=== PATIENT | male | born 1990 | race Caucasian/White ===

== ENCOUNTER 2024-04-23 19:45 | Emergency (ER) | payer SELFPAY ==
[2024-04-23 19:51] VITALS: BP 152/84; PULSE 98; RESP 18; TEMP 36.6; O2SAT 96; BMI 41.2
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
[2024-04-23] MEDS: tetanus-dipt-pertussis 0.5 mL SDV IM (22:36)
[2024-04-23] MEDS: acetaminophen 500 mg Tablet 1000 MG PO (22:54)
[2024-04-23 22:55] VITALS: BP 148/82; PULSE 96; RESP 16; TEMP 36.6; O2SAT 97
[2024-04-23] MEDS: cephALEXin 500 mg Capsule PO (22:55)
== END 2024-04-23 22:58 | disposition home or self-care (01) ==
PROVIDERS: Emergency Provider Physician Assistant
DX: S30.810A Abrasion of lower back and pelvis, initial encounter (principal); S40.812A Abrasion of left upper arm, initial encounter; S91.002A Unspecified open wound, left ankle, initial encounter; V22.49XA Other motorcycle driver injured in collision with two- or three-wheeled motor vehicle in traffic accident, initial encounter; Z23 Encounter for immunization
CPT/HCPCS: 73600; 73610; 73630; 90715; 99283; E0114

== ENCOUNTER 2024-12-17 12:07 | Emergency (ER) | payer SELFPAY ==
[2024-12-17 12:45] VITALS: BP 144/84; PULSE 71; RESP 18; TEMP 36.7; O2SAT 97; BMI 37.5
--- NOTE | 2024-12-17 13:42 | ED_ITS ---
HPI - Dental/Oral General: Chief complaint: Dental/Oral Stated complaint: R Face swollen Time Seen by Provider: 12/17/24 13:19 Source: patient Mode of arrival: ambulatory Limitations: no limitations History of Present Illness: 34-year-old male states he has had cyst to his right lower face has been going on for roughly 7 to 8 months states that it is grown and became more painful he is had no drainage but denies any fever. Associated symptoms: Denies fever(s) Related Data Home Medications Medication Instructions Recorded Confirmed naproxen sodium 220 mg capsule 220 mg PO BID PRN Pain 12/17/24 12/17/24 (Aleve) Previous Rx's Medication Instructions Recorded sulfamethoxazole 800 1 tab PO BID 10 days #20 tabs 12/17/24 mg-trimethoprim 160 mg tablet (Bactrim DS) Allergies Allergy/AdvReac Type Severity Reaction Status Date / Time No Known Allergies Allergy Verified 12/17/24 12:49 Review of Systems Const: Denies: fever(s), chills, body aches or change in appetite ENMT: Denies: throat pain or dental pain Card: Denies: chest pain Resp: Denies: dyspnea GI: Denies: abdominal pain, nausea, vomiting or diarrhea Musc: Denies: neck pain or back pain Skin/Breast: Denies: rash Neuro: Denies: headache(s) Physical Exam Const: COMMON NORMALS: no acute distress, patient oriented x3 and healthy appearing HENMT: COMMON NORMALS: normocephalic and atraumatic HEAD & SCALP: normocephalic and atraumatic OTHER: Sebaceous cyst noted to right lower face no drainage at this time Eye: COMMON NORMALS: Equal, round and reactive pupils present and EOMs intact bilaterally PUPIL: Yes Equal, round and reactive pupils present Neck/C-Spine: COMMON NORMALS: full ROM and supple Chest: COMMONS NORMALS: normal inspection of the chest Resp: COMMON NORMALS: normal respiratory effort Cardio: COMMON NORMALS: regular rate, regular rhythm and No murmurs present (Cardio) RATE: regular rate RHYTHM: regular rhythm Extremity: COMMON NORMALS: normal to inspection and full ROM Neuro: COMMON NORMALS: patient oriented x3, moves all extremities and no focal motor deficits Psych: COMMON NORMALS: mental status grossly normal, Normal thought process present and cooperative THOUGHT PROCESS: Normal thought process present Skin: COMMON NORMALS: no rashes or lesions noted and no wounds GENERAL SKIN EXAM: no rashes or lesions noted Procedures Abscess I/D Site: face Side (if applicable): right Local Anesthetic: lidocaine 1% Amount of anesthesia used (mL): 6 Technique: incised with #11 blade Irrigation: No Packing used?: none Course Vital Signs: Vital signs: Vital Signs Temperature 98.0 F 12/17/24 12:45 Pulse Rate 71 12/17/24 12:45 Respiratory Rate 18 12/17/24 12:45 Blood Pressure 144/84 12/17/24 12:45 Pulse Oximetry 97 12/17/24 12:45 Oxygen Delivery Me thod Room Air 12/17/24 12:45 MDM - Dental/Oral Medical Decision Making Patient presents with a sebaceous cyst to right lower face was able to incise and drain the cyst will start him on Bactrim is to follow-up with dermatology or return if it worsens he understands agrees to plan. No radiology studies performed this visit Discharge Plan Discharge Patient Disposition: Home Clinical Impression: Sebaceous cyst Condition: Stable Prescriptions: New sulfamethoxazole-trimethoprim [Bactrim DS] 800-160 mg tablet 1 tab PO BID 10 Days Qty: 20 0RF No Action naproxen sodium [Aleve] 220 mg Capsule 220 mg PO BID PRN (Reason: Pain) Discharge Orders: Discharge ED (Routine); Ordered 12/17/24 Ordered By: Meliza Kent Referrals: Olga Segundo DO [Physician] - 4-7 days Discharge Diet: Advance as tolerated Discharge Activity: Resume usual activity Patient Instructions: Epidermal Inclusion Cysts (ED) Coding Level of Care Code ED Acute Care Physician for [employer]
== END 2024-12-17 14:19 | disposition home or self-care (01) ==
PROVIDERS: Emergency Provider Emergency Medicine
DX: L72.3 Sebaceous cyst (principal)
CPT/HCPCS: 10060; 99283

== ENCOUNTER 2025-01-08 16:13 | Emergency (ER) | payer SELFPAY ==
[2025-01-08 16:15] VITALS: BP 164/83; PULSE 73; RESP 16; TEMP 36.4; O2SAT 98; BMI 39.9
--- NOTE | 2025-01-08 16:17 | ECG_ITS ---
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
--- NOTE | 2025-01-08 18:07 | ED_ITS ---
HPI - Chest Pain 2 General: Chief Complaint: Chest Pain Stated Complaint: chest pains (3xday) Time Seen by Provider: 01/08/25 17:21 Source: patient Mode of arrival: ambulatory Limitations: no limitations History of Present Illness: Patient is a 34-year-old male who presents emergency department complaining of right chest pain for the past 3 days. States that he feels the pain constantly but intermittently it will significantly worsen to be a sharp pain that he feels in his right shoulder blade. States that prior to symptom onset he took a shot of his friends testosterone and trenbolone because he was told that this would help him lose weight. He denies any personal cardiac history, states his uncle did of a heart attack at the age of 38. He states he has felt short of breath when the pain gets worse, has also felt a flushed feeling in his face and his ears will get really hot. He is hypertensive here in the emergency department, denies history of hypertension or taking any medications. Additionally he does not see a primary care provider. He is not tachycardic and SpO2 is normal, rest of his vitals within normal limits. He has never seen a customer solutions coordinator. Does not report any specific alleviating or exacerbating factors. No temporal pattern reported with this pain. He has never had previous chest pain like this. Denies any recent heavy lifting or trauma to his chest, he does state that he has been under significant amount of stress and recently moved to the area. No peripheral edema, palpitations, abdominal pain, nausea or vomiting, or other symptoms at this time. MD complaint: chest pain Onset (ago): day(s) Timing of current episode: constant Prior episodes: No Onset: during rest Pain location: right chest Pain radiation: right scapula Severity: moderate Quality: sharp Relieving factors: nothing Exacerbating factors: nothing Context: other (increase in stress, new medication) Associated symptoms: Reports dyspnea; Deny abdominal pain, fever(s), nausea, palpitations or vomiting Treatment prior to arrival: none Risk Factors: Coronary artery disease risk factors: hypertension Thoracic aortic dissection risk factors: none Related Data Home Medications ?Medication ?Instructions ?Recorded ?Confirmed naproxen sodium 220 mg capsule 220 mg PO BID PRN Pain 12/17/24 12/17/24 (Aleve) Allergies Allergy/AdvReac Type Severity Reaction Status Date / Time No Known Allergies Allergy Verified 12/17/24 12:49 Review of Systems 2 General: Reports: 10 or more systems reviewed and unremarkable except in HPI and below Const: Denies: fever(s), chills or fatigue Eyes: Denies: change in vision ENMT: Denies: throat pain, ear or mastoid pain or nasal discharge Card: Reports: chest pain; Denies: palpitations, swelling of feet/ankles or lightheadedness Resp: Reports: dyspnea; Denies: productive cough or wheezing GI: Denies: abdominal pain, nausea, vomiting, diarrhea or constipation : Denies: flank pain, difficulty urinating, dysuria or urinary frequency Musc: Reports: back pain; Denies: neck pain or joint pain Skin/Breast: Denies: rash Neuro: Denies: headache(s), numbness in extremities or weakness in extremities Psych: Reports: anxiety Endo: Reports: flushing Physical Exam 2 Const: COMMON NORMALS: no acute distress, patient oriented x3 and no limitations GENERAL APPEARANCE: cooperative, comfortable and well developed NUTRITIONAL APPEARANCE: obese ORIENTATION/CONSCIOUSNESS: Yes awake, Yes oriented to person, Yes oriented to place and Yes oriented to time HENMT: COMMON NORMALS: normocephalic, atraumatic and hearing grossly normal bilaterally HEAD & SCALP: normocephalic and atraumatic Eye: COMMON NORMALS: Equal, round and reactive pupils present, EOMs intact bilaterally and conjunctivae normal CONJUNCTIVA: Yes conjunctivae normal P UPIL: Yes Equal, round and reactive pupils present Neck/C-Spine: COMMON NORMALS: full ROM, supple and no JVD Chest: OTHER: No reproducible tenderness to palpation of the chest wall Resp: COMMON NORMALS: normal respiratory effort, No retractions, No use of accessory muscles and clear to auscultation bilaterally AUSCULTATION: clear to auscultation bilaterally Cardio: COMMON NORMALS: no JVD, regular rate, regular rhythm, No clicks present (Cardio), No murmurs present (Cardio) and No rub (Cardio) RATE: r egular rate RHYTHM: regular rhythm GI: COMMON NORMALS: Normal to inspection, nondistended, normoactive bowel sounds present, Soft to palpation and non-tender AUSCULTATION: Yes normoactive bowel sounds PALPATION: Yes Soft to palpation RECTAL EXAM: Yes deferred Extremity: COMMON NORMALS: normal to inspection, full ROM, capillary refill normal and no pedal edema Neuro: COMMON NORMALS: patient oriented x3, moves all extremities, no focal motor deficits and no sensory deficits noted SENSORIUM/ORIENTATION: Yes oriented to person, Yes oriented to place and Yes oriented to time Psych: COMMON NORMALS: mental status grossly normal and Normal thought process present THOUGHT PROCESS: Normal thought process present Skin: COMMON NORMALS: no rashes or lesions noted GENERAL SKIN EXAM: no rashes or lesions noted Course 2 Vital Signs: Vital signs: Vital Signs Temperature 97.5 F L 01/08/25 16:15 Pulse Rate 83 01/08/25 18:29 Respiratory Rate 16 01/08/25 16:15 Blood Pressure 148/89 01/08/25 18:29 Pulse Oximetry 93 01/08/25 18:29 Oxygen Delivery Me thod Room Air 01/08/25 18:29 MDM - Chest Pain Medical Decision Making Patient has had chest pain to the right chest radiating to the right scapular region for the past few days. Arrived hypertensive, this was brought down without medication throughout ED stay and I do suspect element of anxiety or stress. However informed him to keep a log of this to report to primary care. With his baseline troponin, this was negative. Chest x-ray reviewed did not demonstrate any acute cardiopulmonary findings. EKG also obtained reviewed with physician did not demonstrate any STEMI or other concerning arrhythmias. Heart score of 0. Overall physical examination was unremarkable. Rest of his lab work unremarkable. I suspect noncardiac etiology of this chest pain, ultimately cannot fully rule this out so we will refer him to a primary care provider to follow-up with and obtain cardiac workup as an outpatient to include echocardiogram and/or treadmill stress test. Patient also notes he recently took dosages of testosterone and trenbolone prior to symptom onset, informed him to watch for any palpitations, worsening shortness of breath or chest pain and return as we we will rule out PE at that time. I do not suspect a pulmonary embolism. He also reported me a history of gastroesophageal reflux disorder. Also had noted that he has been under more stress. With all of these potential etiologies, ultimately gave him strict return precautions of which she verbalized understanding. Will not treat the hypertension at this time due to it coming down without medication. Lab Data 01/08/25 18:09 01/08/25 18:09 Radiology Impressions Chest X-Ray 01/08/25 17:35 IMPRESSION: No acute findings. Laboratory Results WBC 8.50 10^3/uL (3.29-11.43) 01/08/25 18:09 RBC 6.23 10^6/uL (3.85-5.65) H 01/08/25 18:09 Hgb 17.30 g/dL (11.27-16.99) H 01/08/25 18:09 Hct 52.5 % (37-53) 01/08/25 18:09 MCV 84.3 fl (82-101) 01/08/25 18:09 MCH 27.8 pg (27-33) 01/08/25 18:09 MCHC 33.0 g/dL (30-55) 01/08/25 18:09 RDW 13.5 % (12.1-15.1) 01/08/25 18:09 Plt Count 201 10^3/cmm (157-399) 01/08/25 18:09 MPV 11.3 fL (7.4-10.4) H 01/08/25 18:09 Neut % (Auto) 62.7 % 01/08/25 18:09 Lymph % (Auto) 22.5 % 01/08/25 18:09 [place] % (Auto) 7.6 % 01/08/25 18:09 Eos % (Auto) 6.8 % 01/08/25 18:09 Baso % (Auto) 0.2 % 01/08/25 18:09 Neut # (Auto) 5.32 10^3/uL (1.8-7.7) 01/08/25 18:09 Lymph # (Auto) 1.9 10^3/uL (0.8-4.8) 01/08/25 18:09 [place] # (Auto) 0.7 10^3/uL (0.2-0.9) 01/08/25 18:09 Eos # (Auto) 0.6 10^3/uL (0.0-0.8) 01/08/25 18:09 Baso # (Auto) 0.0 10^3/uL (0.0-0.1) 01/08/25 18:09 Nucleated RBC % (auto) 0 % 01/08/25 18:09 Nucleated RBCs # 0.0 /100WBC 01/08/25 18:09 Sodium 138 mmol/L (136-145) 01/08/25 18:09 Potassium 4.3 mmol/L (3.5-5.1) 01/08/25 18:09 Chloride 102 mmol/L (98-107) 01/08/25 18:09 Carbon Dioxide 26 mmol/L (22-29) 01/08/25 18:09 Anion Gap 14.3 (5-19) 01/08/25 18:09 BUN 18 mg/dL (6-20) 01/08/25 18:09 Creatinine 1.0 mg/dL (0.7-1.2) 01/08/25 18:09 GFR Calculation 85.0 mL/min (90-130) L 01/08/25 18:09 Glucose 90 mg/dL (65-115) 01/08/25 18:09 Calculated Osmolality 287 mOsm/kg (285-295) 01/08/25 18:09 Calcium 9.6 mg/dL (8.5-10.5) 01/08/25 18:09 Total Bilirubin 0.2 mg/dL (0.15-1.2) 01/08/25 18:09 AST 25 U/L (0-40) 01/08/25 18:09 ALT 46 U/L (0-41) H 01/08/25 18:09 Alkaline Phosphatase 59 U/L (40-130) 01/08/25 18:09 Troponin T Baseline < 6 ng/L (0-15) 01/08/25 18:09 Total Protein 7.1 g/dL (6.6-8.7) 01/08/25 18:09 Albumin 4.6 g/dL (3.5-5.2) 01/08/25 18:09 Globulin 2.5 g/dL (1.3-4.6) 01/08/25 18:09 All radiology interpretation(s) finalized by discharge Discharge Plan Discharge Patient Disposition: Home Clinical Impression: Chest pain Qualifiers: Chest pain type: unspecified Qualified Code(s): R07.9 - Chest pain, unspecified Condition: Stable Prescriptions: No Action naproxen sodium [Aleve] 220 mg Capsule 220 mg PO BID PRN (Reason: Pain) Discharge Orders: Discharge ED (Routine); Ordered 01/08/25 Ordered By: Gregorio Green Patient Instructions: Chest Pain (ED) Activity Restrictions/Additional Instructions: Follow-up with primary care as discussed. Return with any worsening chest pain or shortness of breath. Drink plenty of fluids. Keep a log of your blood pressures at home to report to primary care. 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
[2025-01-08 18:15] LABS: Basophils % 0.2 %; Eosinophils # 0.6 10^3/uL (0.0-0.8); Eosinophils % 6.8 %; Hematocrit 52.5 % (37-53); Lymphocytes # 1.9 10^3/uL (0.8-4.8); Lymphocytes % 22.5 %; Mean Corpuscular Hemoglobin 27.8 pg (27-33); Mean Corpuscular Volume 84.3 fl (82-101); Mean Platelet Volume 11.3 fL (7.4-10.4); Monocytes # 0.7 10^3/uL (0.2-0.9); Monocytes % 7.6 %; Neutrophils # 5.32 10^3/uL (1.8-7.7); Neutrophils % 62.7 %; Nucleated Red Blood Cells % 0 %; Platelet Count 201 10^3/cmm (157-399); Red Blood Count 6.23 10^6/uL (3.85-5.65); Red Cell Distribution Width 13.5 % (12.1-15.1)
[2025-01-08 18:29] VITALS: BP 148/89; PULSE 83; O2SAT 93
[2025-01-08 18:32] LABS: Troponin(5th) Baseline < 6 ng/L (0-15)
[2025-01-08 18:34] LABS: Alanine Aminotransferase 46 U/L (0-41); Albumin Level 4.6 g/dL (3.5-5.2); Alkaline Phosphatase 59 U/L (40-130); Anion Gap 14.3 (5-19); Aspartate Amino Transferase 25 U/L (0-40); Blood Urea Nitrogen 18 mg/dL (6-20); Calcium 9.6 mg/dL (8.5-10.5); Carbon Dioxide 26 mmol/L (22-29); Chloride 102 mmol/L (98-107); Creatinine Clr Calc Pharmacy 158.6083; Globulin 2.5 g/dL (1.3-4.6); Glucose 90 mg/dL (65-115); Osmolality Calculated 287 mOsm/kg (285-295); Potassium 4.3 mmol/L (3.5-5.1); Sodium 138 mmol/L (136-145); Total Bilirubin 0.2 mg/dL (0.15-1.2); Total Protein 7.1 g/dL (6.6-8.7)
--- NOTE | 2025-01-11 07:10 | DCPLANNER ---
messaged wpfm for er f/u
== END 2025-01-08 19:03 | disposition home or self-care (01) ==
PROVIDERS: Emergency Provider Physician Assistant
DX: R07.9 Chest pain, unspecified (principal)
CPT/HCPCS: 36415; 71045; 80053; 84484; 85025; 93005; 99285

== ENCOUNTER 2025-05-03 20:23 | Emergency (ER) | payer SELFPAY ==
[2025-05-03] VITALS (7 sets, daily range): BP systolic 136–170; BP diastolic 72–93; PULSE 71–102; RESP 18–20; TEMP 36.7; O2SAT 95–98; BMI 50.0
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
[2025-05-03 20:50] LABS: Basophils % 0.3 %; Eosinophils # 0.7 10^3/uL (0.0-0.8); Eosinophils % 5.8 %; Hematocrit 48.8 % (37-53); Mean Corpuscular Hemoglobin 29.3 pg (27-33); Mean Corpuscular Volume 86.1 fl (82-101); Mean Platelet Volume 11.1 fL (7.4-10.4); Monocytes # 0.7 10^3/uL (0.2-0.9); Monocytes % 5.9 %; Neutrophils # 6.23 10^3/uL (1.8-7.7); Neutrophils % 53.6 %; Nucleated Red Blood Cells % 0 %; Platelet Count 257 10^3/cmm (157-399); Red Blood Count 5.67 10^6/uL (3.85-5.65); Red Cell Distribution Width 13.9 % (12.1-15.1); White Blood Count 11.63 10^3/uL (3.29-11.43)
[2025-05-03] MEDS: iohexol 350 mg/mL 500 mL Btl (per mL) IV (20:54)
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
[2025-05-03 21:04] LABS: Anion Gap 16.5 (5-19); Blood Urea Nitrogen 13 mg/dL (6-20); Calcium 9.3 mg/dL (8.5-10.5); Carbon Dioxide 25 mmol/L (22-29); Chloride 103 mmol/L (98-107); Creatinine Clr Calc Pharmacy 163.4325; Glomerular Filtration Rate 76.2 mL/min (90-130); Glucose 143 mg/dL (65-115); Osmolality Calculated 295 mOsm/kg (285-295); Potassium 3.5 mmol/L (3.5-5.1); Sodium 141 mmol/L (136-145)
[2025-05-03] MEDS: ondansetron 2 mg/ML SDV 2 mL 4 MG IVP (21:04)
[2025-05-03] MEDS: HYDROmorphone 0.5 MG/0.5 ML INJ 1 MG IVP ×2 (21:05→21:55)
[2025-05-03] MEDS: ketorolac 30 mg/mL INJ IVP (22:14)
[2025-05-03] MEDS: LORazepam 1 MG/0.5 ML injection IVP (22:14)
[2025-05-03] MEDS: HYDROcodone-acetaminophen 5-325 mg Tablet 2 TAB PO (22:59)
[2025-05-04 00:04] VITALS: BP 136/91; PULSE 96; RESP 18; O2SAT 96
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
== END 2025-05-03 23:07 | disposition home or self-care (01) ==
PROVIDERS: Emergency Provider Emergency Medicine
DX: S42.115A Nondisplaced fracture of body of scapula, left shoulder, initial encounter for closed fracture (principal); V20.49XA Other motorcycle driver injured in collision with pedestrian or animal in traffic accident, initial encounter; R07.9 Chest pain, unspecified; S51.002A Unspecified open wound of left elbow, initial encounter; S51.001A Unspecified open wound of right elbow, initial encounter; S81.802A Unspecified open wound, left lower leg, initial encounter; S81.801A Unspecified open wound, right lower leg, initial encounter
CPT/HCPCS: 36415; 70450; 71260; 72125; 73030; 73060; 73080; 73552; 74177; 80048; 85025; 96374; 96375; 96376; 99285; J1171; J1885; J2060; J2405; J9999

== ENCOUNTER → 2025-05-06 12:56 | Outpatient (BNVA) | payer SELFPAY | PROVIDERS: Visit Provider Orthopaedic Surgery | DX: S42.102A Fracture of unspecified part of scapula, left shoulder, initial encounter for closed fracture (principal); X58.XXXA Exposure to other specified factors, initial encounter | CPT/HCPCS: 73010 ==